=== PATIENT | female | born 1960 | race African-American/Black ===

== ENCOUNTER → 2019-05-26 | Outpatient (CLI) | payer OTHER ==
[~2019-05-26] VITALS: Ht 160 cm; Wt 70.8 kg
[~2019-05-26] MED LIST: AVAPRO300 MG PO; HUMALOG100 UNIT/1 SUBQ; HYDROCODON-ACE1 EAC7 PO; JARDIANCE25 MG PO; NABUMETONE 500500 M1 PO; NEXIUM 24HR20 M1 PO; PROBIOTIC1 EAC7 PO; ROSUVASTATIN CA20 MG PO; SERTRALINE HCL100 MG PO; UNICOMPLEX M TA1 TA1 PO; VALACYCLOVIR500 MG PO; [UNRECOGNIZED DRUG - SUPPLY] SUBQ
[2019-05-26 10:42] VITALS: BP 131/69
--- NOTE | 2019-05-26 11:08 | NUR ---
Pain Clinic Assessment: 1. History of Osteoarthritis: BACK History of Rheumatoid Arthritis: Not Applicable 2. Height: 5 ft. 3 in. 160.0 cm. Weight: 156.0 lb. oz. 70.761 kg. Patient's BMI: 27.6 3. Vital Signs: BP: 131/69 Pulse: 86 Resp: 16 Temp: 02 Sat: 97 ECG Mon: 4. Pain Intensity: 7 5. Fall Risk: Dizziness: Y Needs help standing or walking: N Fallen in the last 3 months: N Fall risk comments: 6. Patient on Blood Thinner: None 7. History of Hypertension: Y 8. Opioid Therapy greater than 6 weeks: N Opiate Contract Signed: 9. Risk Assessment Tool Provided: 3-LOW RISK 10. Functional Assessment Tool: 59/70 11. Recreational Drug Use: Never Drug Type: Tobacco Use: Never Smoker Tobacco Type: Amount or Packs/day: How Many Years: Alcohol Use: No Frequency: Quant:
--- NOTE | 2019-05-27 11:48 | HPC ---
[facility] [address] [address] PAIN MANAGEMENT CONSULTATION Name: SAIRA MENDOZA Room #: REG [facility].#: [id number] Admission: 05/26/19 Attend Phys: Stas Odonnell DO Discharge: Date of : 58 Report #: [id number] THIS REPORT FOR: //name// CC: Delilah GARCIA Physician staff DATE OF SERVICE: 05/26/2019 REFERRING PHYSICIAN: Delilah Husain. PRIMARY CARE PHYSICIAN: Dr. Nava Garcia. CHIEF COMPLAINT: Low back pain, left lower extremity pain with paresthesias. HISTORY OF PRESENT ILLNESS: As you know, the patient is a very pleasant 58-year-old female who reports longstanding history of low back pain, left lower extremity pain with paresthesias. The patient states pain began without inciting injury or trauma and has progressively worsened. She signed an initial treatment through her primary care physician, but due to lack of improvement and continued debility, the patient was then referred to see [facility]. The patient was seen by nurse practitioner, Dr. Jaky Husain on 05/01/2019, diagnosed with lumbar radiculopathy secondary to stenosis and a referral was placed to our clinic for the patient to be seen for evaluation. The patient indicates today pain is continuous, constant and periodic in nature, describes the pain as shooting, aching, crushing and sharp. Places current pain score at 7/10, daily average is 7/10, worst pain has been is 10/10. The patient states that moving, exercising and walking exacerbate her symptoms. Electric vibration and heat tend to improve pain. She has been referred to our service by nurse practitioner, Delilah Husain to discuss treatment options for lumbar radiculopathy. PAST MEDICAL HISTORY: 1. Hyperlipidemia. 2. Gastroesophageal reflux disease. 3. Depression. 4. TMJ. 5. Migraine headaches. 6. Cluster headaches. 7. Diabetes mellitus type 2. 8. Insomnia. 9. Chronic fatigue syndrome. 10. Nephritis. [address] [address] PAIN MANAGEMENT CONSULTATION Name: SAIRA MENDOZA Room #: REG [facility].#: [id number] Admission: 05/26/19 Attend Phys: Stas Odonnell DO Discharge: Date of : 58 Report #: [id number] 11. Chronic lumbar radiculopathy. PAST SURGICAL HISTORY: 1. section. 2. Breast biopsy. 3. Spine surgery. 4. Colonoscopy. 5. ORIF, right wrist. SOCIAL HISTORY: The patient denies tobacco, IV or illicit drug use. 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 She is working, not receiving workmen's compensation or is trying to obtain disability benefits. She is not in litigation in regards to pain. She is unaccompanied today. REVIEW OF SYSTEMS: Positive for fatigue and weakness, frequent and recurrent headaches, eye disease, wearing corrective eyewear, hearing loss with tinnitus, chronic sinus problems with rhinitis, sore throat with voice changes, shortness of breath with walking or lying flat, rectal bleeding, abdominal pain, frequent urination, nocturia, incontinence, dribbling to urine, sexual difficulty, painful menses, irregular menses, vaginal discharge, breast pain, frequent and recurrent headaches, tremors, head injury, memory loss with confusion, nervousness, depression, insomnia, diabetes mellitus type 2, excessive thirst and urination, heat and cold intolerances, slow to heal after cuts, bleeding and bruising tendencies, anemia, chronic low back pain. All other review of systems negative per 12-point review of systems other than those listed in the history of present illness. Pain impact score 59/70 indicating severe interference of daily activities secondary to pain. ALLERGIES: No known drug allergies. CURRENT MEDICATIONS: Omeprazole 20 mg once a day, probiotic 1 tab per day, multivitamin 1 tab per day, 20 mg per day, valacyclovir 500 mg once a day, sertraline 100 mg once a day, insulin sliding scale before meals at bedtime, irbesartan 300 mg once a day, Jardiance 25 mg once a day. IMAGING: MRI lumbar spine obtained 03/12/2019 shows degenerative disk disease seen throughout the lumbar spine resulting in mild central canal stenosis at the L5-S1 level, [id number] central canal stenosis at L4-L5 level. No neural foraminal stenosis. PHYSICAL EXAMINATION: VITAL SIGNS: Blood pressure 131/69, pulse 86, respiratory rate 16 and unlabored. The patient is 97% on room air. Height 5 feet 3 inches tall, weight 156 pounds, BMI calculated at 27.6. [place] [address] PAIN MANAGEMENT CONSULTATION Name: SIARA MENDOZA Room #: REG [facility].#: [id number] Admission: 05/26/19 Attend Phys: Stas E. Blas, DO Discharge: Date of : 58 Report #: [id number] GENERAL: Well-developed, well-nourished, well-hydrated 58-year-old female, appearing stated age, pain is rated today at 7/10. HEENT: Normocephalic, atraumatic. Pupils are equal, round, reactive to light. Extraocular muscles are intact. Sclerae nonicteric without injection. NEUROLOGIC: Cranial nerves 2 through 12 grossly intact. Speech fluent. The patient deemed a good historian. LUNGS: Clear, no wheeze, rhonchi or rales. CARDIOVASCULAR: Regular. No appreciable gallop, no rub. ABDOMEN: Soft, nontender, nondistended, normoactive bowel sounds. EXTREMITIES: Show no clubbing, no cyanosis, no edema. MUSCULOSKELETAL: Lower extremity strength appears equal and symmetrical 5/5, intact to light touch from L1 through S2 dermatomes. Seated straight leg raising negative. Supine straight leg raising positive on the left. Priya's test is negative. Modified Gaenslen's positive for axial low back pain. Ankle clonus negative. Babinski is negative. Deep tendinous reflexes equal and symmetrical, 2+/4 patella and Achilles. ASSESSMENT: 1. Symptomatic lumbar radiculopathy. 2. Central canal stenosis of lumbar spine. 3. Displacement of lumbar intervertebral disk with radiculopathy. 4. Lumbosacral spondylosis with radiculopathy. 5. Lumbar degeneration. 6. Chronic intractable pain. PLAN: 1. Based on today's physical exam and history the patient has provided, the description the patient uses in regards to pain as well as the location of symptoms, likely source of the patient's pain is lumbar radiculopathy. It is confirmed on the MRI from 2019 that the patient has changes at the L4-L5 level consistent with the patient's distribution of symptoms due to central canal stenosis. We discussed the findings of the MRI with the patient today and then after that discussion, we discussed treatment options. The patient has a full and comprehensive understanding of her findings in the lumbar spine and the following was discussed with the patient on how to treat the symptoms further. We discussed physical therapy, stretching exercise, core strengthening as a treatment course. We discussed medication management utilizing neuropathic pain medications and a consistent nonsteroidal anti-inflammatory. We also discussed epidural injection for which the patient was referred to our clinic, spinal cord stimulator and ultimately surgical decompression. After reviewing of risks and benefits of all the proposed treatment options, the patient chose to begin with epidural injection under fluoroscopic guidance. 2. The patient was advised that due to third republican payer restrictions, authorization would have to be obtained before the patient could undergo a lumbar epidural injection under fluoroscopic guidance. Authorization could take [address] [address] PAIN MANAGEMENT CONSULTATION Name: SAIRA MENDOZA Room #: REG [facility] Que#: [id number] Admission: 05/26/19 Attend Phys: Stas Odonnell DO Discharge: Date of : 58 Report #: [id number] anywhere from 4-7 working days to begin this process immediately. Once this has been completed, we will have the patient return to undergo lumbar epidural injection. We will start the patient on nabumetone as an anti-inflammatory. We will start at 500 mg t.i.d. I have given the patient #90 tablets, no refills. I have advised the patient to watch for side effects of dyspepsia, worsening of blood pressure, lower extremity edema with its use. If she notes any side effects, discontinue immediately, call for further instructions. 3. The patient was provided a low dose of hydrocodone 5/325 one tab p.o. q. 8 hours p.r.n. for pain. I have given the patient #45 tablets, no refills. I advised the patient to take the medication as directed, not to take the medication prophylactically. She will watch for side effects of sleepiness, disorientation, confusion, mental slowing and constipation with its use; any side effects, discontinue immediately. 4. We will see the patient back in followup visit once we have achieved authorization for the patient to undergo a lumbar epidural injection. We are hopeful that authorization will be provided quickly, so that we can move forward with an epidural injection. We will keep the patient apprised of our progress. 5. We wish to thank nurse practitioner, Delilah Husain for the referral of the patient to our clinic. We will keep you apprised of her response to treatment as we address lumbar radicular symptoms secondary to central canal stenosis. Again, we wish to thank you for the opportunity to see this patient in consultation. <ELECTRONICALLY SIGNED> By: Stas Odonnell DO 05/27/19 1148 [id number] Stas Odonnell DO /nt
== END ==
LOC: PAIN 06:49
DX: M51.16 Intervertebral disc disorders with radiculopathy, lumbar region (principal); M47.27 Other spondylosis with radiculopathy, lumbosacral region; M48.061 Spinal stenosis, lumbar region without neurogenic claudication; G89.4 Chronic pain syndrome

== ENCOUNTER → 2019-05-27 | Outpatient (CLI) | payer OTHER ==
[~2019-05-27] VITALS: Ht 160 cm; Wt 70.8 kg
--- NOTE | ~2019-05-27 | HPC ---
[facility] [place] [address] PAIN MANAGEMENT CONSULTATION Name: SAIRA MENDOZA Room #: REG [facility].#: [id number] Admission: 05/27/19 Attend Phys: Stas Odonnell DO Discharge: Date of : 58 Report #: [id number] THIS REPORT FOR: //name// CC: Jaky Garcia MD Physician staff REFERRING PHYSICIAN: Jaky Husain, nurse practitioner. PRIMARY CARE PHYSICIAN: Nava Garcia M.D. CHIEF COMPLAINT: Low back pain, left lower extremity pain with paresthesias. HISTORY OF PRESENT ILLNESS: As you know, the patient is a very pleasant 58-year-old female seen in consultation yesterday, 05/26/2019, diagnosed with lumbar radiculopathy secondary to central canal stenosis. She was established today's appointment to undergo a lumbar epidural injection under fluoroscopic guidance. The patient has yet to initiate the medication started at our last visit. She states that over the past 24 hours, her pain has not changed in any great degree. She returns today to undergo a lumbar epidural injection under fluoroscopic guidance for which we have gained authorization. ALLERGIES: No known drug allergies. CURRENT MEDICATIONS: Omeprazole, probiotic, multivitamin, valacyclovir, sertraline, insulin sliding scale, irbesartan, Jardiance, rosuvastatin. SOCIAL HISTORY: The patient denies tobacco, IV or illicit drug use. Currently employed as a digital sales assistant, working, not receiving workmen's compensation, unaccompanied today. IMAGING: No new imaging available. PHYSICAL EXAMINATION: VITAL SIGNS: Blood pressure 127/85, pulse 80, respiratory rate 20 and unlabored. The patient is 95% on room air. Height 5 feet 3 inches tall, weight 156 pounds, BMI calculated at 27.6. GENERAL: Well-developed, well-nourished, well-hydrated 58-year-old female appearing stated age. Pain is rated today at 3/10. HEENT: Normocephalic, atraumatic. Pupils equal, round, reactive to light. EXTREMITIES: Show no clubbing, no cyanosis, and no edema. MUSCULOSKELETAL: Lower extremity strength equal and symmetrical 5/5, intact to light touch from L1 through S2 dermatomes. Seated straight leg raising negative. Supine straight leg [place] [address] PAIN MANAGEMENT CONSULTATION Name: SAIRA MENDOZA Room #: REG [facility]#: [id number] Admission: 05/27/19 Attend Phys: Stas Odonnell DO Discharge: Date of : 58 Report #: [id number] ASSESSMENT: 1. Symptomatic lumbar radiculopathy. 2. Central canal stenosis of lumbar spine. 3. Displacement of lumbar intervertebral disk with radiculopathy. 4. Lumbosacral spondylosis with radiculopathy. 5. Lumbar degeneration. 6. Chronic intractable pain. PLAN: 1. The patient returns today in followup visit to undergo first in a series of lumbar epidural injections under fluoroscopic guidance. She has been advised of the risks and benefits of this procedure. These risks include but are not necessarily limited to bleeding, bruising, infection, worsening of pain, no relief of pain, also risk of temporary or permanent muscle weakness, temporary or permanent nerve damage, possible paralysis, post-dural puncture headache and . The patient states understood and wished to proceed. 2. No medication changes made at today's visit. The patient was advised to continue medications as currently prescribed. 3. We will see the patient back in followup visit in 31 days. At that time, review the efficacy of today's epidural injection to determine next in the series might be necessary PROCEDURE NOTE DESCRIPTION OF PROCEDURE: L5-S1 left parasagittal epidural steroid injection under fluoroscopic guidance. This is the first procedure of the first series that the patient is undergoing. After obtaining written consent, the patient was taken back to the fluoroscopy suite, placed in a prone position with pillow under the abdomen to decrease lumbar lordosis. The skin overlying the lumbosacral area was then prepped and draped in aseptic fashion. The L5-S1 vertebral interspace was then identified by AP fluoroscopy. The skin and subcutaneous tissue overlying the target site of injection was anesthetized with 3 mL 1% lidocaine. A 20-gauge 3.5 inch Tuohy needle was then advanced under fluoroscopic guidance towards the epidural space using a right parasagittal approach. The epidural space was identified using loss of resistance to air technique. After negative aspiration for heme or cerebrospinal fluid, a total of 1 mL of Omnipaque was injected. A lumbar epidurogram was confirmed using both AP and lateral fluoroscopy. After negative aspiration for heme or cerebrospinal fluid, 5 mL of a solution containing 2 mL 40 mg per mL, 80 mg total triamcinolone along with 3 mL of lidocaine 1% was injected in increments. Contrast spread was noted posterior epidural space. The needle was then retracted approximately half way and needle tract flushed with 1 mL of 1% lidocaine. Needle was then removed. [address] [address] PAIN MANAGEMENT CONSULTATION Name: SAIRA MENDOZA Room #: REG [facility]#: [id number] Admission: 05/27/19 Attend Phys: Stas Odonnell DO Discharge: Date of : 58 Report #: [id number] There were no apparent sensory or motor deficits in the lower extremity following the procedure. A sterile bandage was placed over the injection site. The heart rate, pulse, oximetry and blood pressure were continuously monitored after the procedure. There were no apparent complications. The patient tolerated the procedure well and was carefully escorted to the recovery room in stable condition. There were no apparent complications. After meeting discharge criteria, the patient was then discharged home. By: [id number] Stas Odonnell DO /nt
[2019-05-27 12:41] VITALS: BP 127/85
--- NOTE | 2019-05-27 12:43 | NUR ---
Pain Clinic Assessment: 1. History of Osteoarthritis: BACK History of Rheumatoid Arthritis: Not Applicable 2. Height: 5 ft. 3 in. 160.0 cm. Weight: 156.0 lb. oz. 70.761 kg. Patient's BMI: 27.6 3. Vital Signs: BP: 127/85 Pulse: 80 Resp: 20 Temp: 02 Sat: 95 ECG Mon: 4. Pain Intensity: 3 5. Fall Risk: Dizziness: N Needs help standing or walking: N Fallen in the last 3 months: N Fall risk comments: 6. Patient on Blood Thinner: None 7. History of Hypertension: Y 8. Opioid Therapy greater than 6 weeks: N Opiate Contract Signed: 9. Risk Assessment Tool Provided: 3-LOW RISK 10. Functional Assessment Tool: 59/70 11. Recreational Drug Use: Never Drug Type: Tobacco Use: Never Smoker Tobacco Type: Amount or Packs/day: How Many Years: Alcohol Use: No Frequency: Quant:
== END | disposition home or self-care (01) ==
LOC: PAIN 12:26
DX: M51.16 Intervertebral disc disorders with radiculopathy, lumbar region (principal); M47.27 Other spondylosis with radiculopathy, lumbosacral region; M48.061 Spinal stenosis, lumbar region without neurogenic claudication; G89.29 Other chronic pain; Z79.891 Long term (current) use of opiate analgesic; Z79.899 Other long term (current) drug therapy

== ENCOUNTER → 2019-06-16 | Outpatient (CLI) | payer OTHER ==
[~2019-06-16] VITALS: Ht 160 cm; Wt 70.0 kg
[~2019-06-16] MED LIST changes: +MELOXICAM7.5 MG PO
[2019-06-16 09:38] VITALS: BP 154/93
--- NOTE | 2019-06-16 09:47 | NUR ---
Pain Clinic Assessment: 1. History of Osteoarthritis: BACK History of Rheumatoid Arthritis: Not Applicable 2. Height: 5 ft. 3 in. 160.0 cm. Weight: 154.4 lb. oz. 70.035 kg. Patient's BMI: 27.4 3. Vital Signs: BP: 154/93 Pulse: 70 Resp: 14 Temp: 02 Sat: 95 ECG Mon: 4. Pain Intensity: 5-6 AVG 5. Fall Risk: Dizziness: N Needs help standing or walking: N Fallen in the last 3 months: N Fall risk comments: 6. Patient on Blood Thinner: None 7. History of Hypertension: Y 8. Opioid Therapy greater than 6 weeks: N Opiate Contract Signed: 9. Risk Assessment Tool Provided: 3-LOW RISK 10. Functional Assessment Tool: 59/70 11. Recreational Drug Use: Never Drug Type: Tobacco Use: Never Smoker Tobacco Type: Amount or Packs/day: How Many Years: Alcohol Use: No Frequency: Quant:
--- NOTE | 2019-06-23 08:03 | HPC ---
[facility] [place] [address] PAIN MANAGEMENT CONSULTATION Name: SAIRA MENDOZA Room #: REG [facility]#: [id number] Admission: 06/16/19 Attend Phys: Stas Odonnell DO Discharge: Date of : 58 Report #: [id number] THIS REPORT FOR: cc: JAMIE RAGSDALE Physician not on staff Stas Odonnell DO ~ THIS REPORT FOR: //name// CC: Jaky RAGSDALE Physician staff DATE OF SERVICE: 06/16/2019 CHIEF COMPLAINT: Low back pain, left lower extremity pain and paresthesias. HISTORY OF PRESENT ILLNESS: As you know, the patient is a very pleasant 58-year-old female returning in followup visit indicating only transient improvement in symptoms with the epidural injection provided at our visit of 05/27/2019. The patient states about a week worth of improvement overall. She returns today to discuss options for treatment. She is placing her current pain score around 5-6/10. As you are aware, the patient does have significant changes noted pathologically at the L4-L5 level causing [id number] central canal stenosis, the likely source of the patient's symptoms. ALLERGIES: No known drug allergies. CURRENT MEDICATIONS: Omeprazole, probiotic, multivitamin, valacyclovir, sertraline, insulin, irbesartan, Jardiance, atorvastatin and nabumetone. SOCIAL HISTORY: The patient denies tobacco, IV or illicit drug use. She is employed as a buyer broker working, not receiving workmen's compensation, unaccompanied today. IMAGING: No new imaging is available. PHYSICAL EXAMINATION: VITAL SIGNS: Blood pressure 154/93, pulse 70, respiratory rate 14 and unlabored. The patient is 95% on room air. Height 5 feet 3 inches tall, weight 154.4 pounds, and BMI calculated 27.4. GENERAL: Well-developed, well-nourished, well-hydrated 58-year-old female appearing stated age, pain is rated today around 5-6/10. HEENT: Normocephalic, atraumatic. Pupils equal, round, reactive to light. Speech is fluent. The patient deemed a good historian. EXTREMITIES: Show no clubbing, no cyanosis, and no edema. [address] [address] PAIN MANAGEMENT CONSULTATION Name: SAIRA MENDOZA Room #: REG [facility]#: [id number] Admission: 06/16/19 Attend Phys: Stas Odonnell DO Discharge: Date of : 58 Report #: [id number] MUSCULOSKELETAL: The patient reports continued equal and symmetrical strength, which is proven by physical exam today. She is intact to light touch from L1 through S2 dermatomes. Seated straight leg raising negative. Supine straight leg raising positive on the left. Priya's test is negative. Gait is mildly antalgic favoring left lower extremity. ASSESSMENT: 1. Symptomatic lumbar radiculopathy. 2. Moderate to severe central canal stenosis of the lumbar spine. 3. Displacement of lumbar intervertebral disk with radiculopathy. 4. Lumbosacral spondylosis with radiculopathy. 5. Lumbar degeneration. 6. Chronic intractable pain. PLAN: 1. The patient returns today in followup visit to discuss options for treatment as the epidural injection did only provide transient improvement in symptoms. We discussed with the patient the treatment options we have available to address lumbar radicular symptoms secondary to spinal stenosis. The following was discussed with the patient today. We discussed physical therapy, stretching exercise, core strengthening and a concerted effort at any weight loss to alleviate some of the pressure from the weight, but also to improve core strengthening, which can stabilize the lumbar spine and reduce pain. We discussed medication management utilizing neuropathic pain medications for improvement in radiculopathy. We discussed repeating epidural injection under fluoroscopic guidance for which the patient was referred to our service. We also discussed spinal cord stimulator therapy and ultimately surgical decompression. After reviewing the risks and benefits of all proposed treatment options, the patient chose to move forward with a spinal cord stimulator trial. 2. The patient was given information today in both digital and written form in regards to spinal cord stimulator. The patient will seek evaluation through Psychiatry as part of the prerequisites for the patient to undergo the trial implantation. If the patient shows no psychopathology, she would be a candidate for a trial implantation. We will begin the process of any preapprovals that may be necessary through the patient's insurer after she has completed the psychiatric evaluation. 3. The patient was given the names of psychiatrists in the area who do the testing for spinal cord stimulator. The patient will make an appointment with these individuals as quickly as possible. Once she has this appointment completed, she is to contact our clinic advising us of completion of the trial, so that we can then review the psychiatric evaluation. If no psychopathology is noted, we will then begin the process of authorization for trial implantation. The patient was advised the faster she is able to see the psychiatrist, the faster we can move forward with a trial implantation. [facility] [address] [place] [address] PAIN MANAGEMENT CONSULTATION Name: SAIRA MENDOZA Room #: REG [facility]#: [id number] Admission: 06/16/19 Attend Phys: Stas Odonnell DO Discharge: Date of : 58 Report #: [id number] 4. The patient indicates that she is having some difficulty from a dyspepsia standpoint. When taking the nabumetone, we recommend she discontinue this medication, in place, we will use meloxicam, which has a more stomach protective formulation. She will start this medication today taken twice a day with meals. She was given meloxicam 7.5 mg 1 tab p.o. b.i.d., #60, 2 refills. 5. The patient and I did discuss the spinal cord stimulator in its entirety today. We will begin the authorization process for the patient to undergo the procedure. We will hopefully have the patient back as quickly as possible. She can contact our clinic at any time to determine progress of this preapproval process. <ELECTRONICALLY SIGNED> By: Stas Odonnell DO 06/23/19 [id number] Stas Odonnell DO /nt
== END ==
LOC: PAIN 06:49
DX: M47.26 Other spondylosis with radiculopathy, lumbar region (principal); M48.061 Spinal stenosis, lumbar region without neurogenic claudication; M51.16 Intervertebral disc disorders with radiculopathy, lumbar region; M47.818 Spondylosis without myelopathy or radiculopathy, sacral and sacrococcygeal region; G89.29 Other chronic pain; Z79.899 Other long term (current) drug therapy

== ENCOUNTER → 2019-10-13 | Outpatient (CLI) | payer OTHER ==
[~2019-10-13] VITALS: Ht 160 cm; Wt 65.9 kg
[~2019-10-13] MED LIST changes: +SPIRONOLACTONE25 MG PO
[2019-10-13 09:04] VITALS: BP 143/82
--- NOTE | 2019-10-13 09:16 | NUR ---
Pain Clinic Assessment: 1. History of Osteoarthritis: BACK History of Rheumatoid Arthritis: Not Applicable 2. Height: 5 ft. 3 in. 160.0 cm. Weight: 145.2 lb. oz. 65.862 kg. Patient's BMI: 25.7 3. Vital Signs: BP: 143/82 Pulse: 86 Resp: 14 Temp: 02 Sat: 98 ECG Mon: 4. Pain Intensity: 4 5. Fall Risk: Dizziness: N Needs help standing or walking: N Fallen in the last 3 months: N Fall risk comments: 6. Patient on Blood Thinner: None 7. History of Hypertension: Y 8. Opioid Therapy greater than 6 weeks: N Opiate Contract Signed: 9. Risk Assessment Tool Provided: 3-LOW RISK 10. Functional Assessment Tool: 59/70 11. Recreational Drug Use: Never Drug Type: Tobacco Use: Never Smoker Tobacco Type: Amount or Packs/day: How Many Years: Alcohol Use: No Frequency: Quant:
--- NOTE | 2019-10-14 13:15 | HPC ---
[facility] [address] [place] [address] PAIN MANAGEMENT CONSULTATION Name: SAIRA MENDOZA Room #: REG [facility].#: [id number] Admission: 10/13/19 Attend Phys: Stas Odonnell DO Discharge: Date of : 58 Report #: [id number] THIS REPORT FOR: cc: JAMIE RAGSDALE Physician not on staff Stas Odonnell DO ~ DATE OF SERVICE: 10/13/2019 REFERRING PHYSICIAN: Jaky Husain, nurse practitioner. CHIEF COMPLAINT: Low back pain and left lower extremity pain with paresthesias. HISTORY OF PRESENT ILLNESS: As you know, the patient is a very pleasant 59-year-old female who has returned today in followup visit to undergo next in the series of lumbar epidural injections. The patient reports transient improvement in symptoms again with this previous epidural injection. She reports initial improvement of approximately 80%, but this only lasted for about 2 weeks and subsequent recurrence of symptoms. The patient, as you are aware, was referred to our clinic to undergo spinal cord stimulator trial implantation, but unfortunately the third republican payer has been unwilling to allow for this device to be trialled. She continues to utilize conservative treatment with minimal benefit. She returns today requesting next in the series of epidural injections in hopes of improving pain and discuss other options for treatment. ALLERGIES: No known drug allergies. CURRENT MEDICATIONS: Irbesartan, Jardiance, insulin, sertraline, valacyclovir, rosuvastatin, multivitamin, probiotics, omeprazole, nabumetone, hydrocodone, spironolactone, and meloxicam. SOCIAL HISTORY: The patient denies tobacco, IV or illicit drug use. She is working, not receiving workmen's compensation, unaccompanied today. IMAGING: No new imaging available. PHYSICAL EXAMINATION: VITAL SIGNS: Blood pressure 143/82, pulse 86, respiratory rate 14 and unlabored. The patient is 98% on room air. Height 5 feet 3 inches tall, weight 145.2 pounds, BMI calculated 25.7. GENERAL: Well-developed, well-nourished, well-hydrated 59-year-old female appearing stated age. Pain is rated today at 4/10. HEENT: Normocephalic, atraumatic. Pupils equal, round and reactive. Speech fluent. EXTREMITIES: Show no clubbing, no cyanosis, no edema. MUSCULOSKELETAL: The patient has equal and symmetrical lower extremity strength [address] [address] PAIN MANAGEMENT CONSULTATION Name: SAIRA MENDOZA Room #: REG [facility]#: [id number] Admission: 10/13/19 Attend Phys: Stas Odonnell DO Discharge: Date of : 58 Report #: [id number] again today 09/07. Muscle bulk and tone is symmetrical when comparing the left lower extremity to right. Seated straight leg raising negative. Supine straight leg raising positive on the left at approximately 50-60 degree angle. Ankle clonus negative. Babinski is negative. Gait does appear mildly antalgic again favoring the left lower extremity over right. Lumbar provocation testing is met with increased axial back pain mainly with rotation and lateral flexion bilaterally. ASSESSMENT: 1. Symptomatic lumbar radiculopathy. 2. Moderate to severe central canal stenosis of lumbar spine. 3. Displacement of lumbar intervertebral disk with radiculopathy. 4. Lumbosacral spondylosis with radiculopathy. 5. Lumbar degeneration. 6. Chronic intractable pain. PLAN: 1. The patient returns today in followup visit requesting to undergo epidural injection under fluoroscopic guidance and to discuss other treatment options. As you are aware, the patient receives good benefit with the epidural injection, but unfortunately they are transient in their improvement in pain. Previous epidural injection gave approximately 80% improvement in overall pain lasting for 2 weeks with return of symptoms soon after. This would indicate the central canal stenosis as the source of the patient's symptoms as she has only seeing transient improvement with the injections and symptoms are now presenting periodically bilaterally. The patient and I did discuss other treatment options. The following was discussed with the patient today. We discussed physical therapy, stretching exercises and core strengthening as a way to maintain strength, but we will not change her overall pain. We discussed adjustments in medication management, trialing long-acting neuropathic medications. The patient has been on amitriptyline in the past, which led to significant weight gain and had to discontinue the therapy. She has not been on the long-acting gabapentin therapy such as Gralise or Horizant. She is resistant to look towards Lyrica given the concern of weight gain she had with other medications. We discussed epidural injections as a way to improve the pain transiently. We also discussed spinal cord stimulator, which I believe should have been approved initially, but we will continue the process of trying to gain approval on this and we will request the referring neurosurgery team to also be involved in that portion of the patient's care. We also discussed surgical options with the patient as she is considering this option, given the lack of approvals on the spinal cord stimulator. After reviewing the risks and benefits of all proposed treatment options, the patient chose epidural injection and medication management changes today with consideration of surgical options in the future. 2. The patient was given samples of Horizant 600 mg dose. She will begin [address] [address] PAIN MANAGEMENT CONSULTATION Name: SAIRA MENDOZA Room #: REG [facility]#: [id number] Admission: 10/13/19 Attend Phys: Stas Odonnell DO Discharge: Date of : 58 Report #: [id number] p.o. at bedtime and continue for 7 nights. If no improvement in symptoms and no side effects of sleepiness, disorientation, confusion, mental slowing, then increase to 600 mg in the morning and 600 mg at night for a total of 1200 mg daily dose. She was given samples of the medication today. She will contact our clinic when she initiates the medication and let us know the efficacy. 3. The patient has been advised of the risks and benefits of a lumbar epidural injection. These risks include but are not necessarily limited to bleeding, bruising, infection, worsening pain, no relief of pain, also risk of temporary or permanent muscle weakness, temporary or permanent nerve damage, possible paralysis and . The patient states understood and wished to proceed. 4. The patient will return to our clinic on an as needed basis for possible next in the series of epidural injections. We will await a phone call from the patient in regards to efficacy with the Horizant to determine if we continue that therapy or make further adjustments. PROCEDURE NOTE DESCRIPTION OF PROCEDURE: L5-S1 interlaminar epidural steroid injection under fluoroscopic guidance. This is the second procedure of the first series that the patient is undergoing. After obtaining written consent, the patient was taken back to the fluoroscopy suite, placed in a prone position with pillow under the abdomen to decrease lumbar lordosis. The skin overlying the lumbosacral area was then prepped and draped in aseptic fashion. The L5-S1 vertebral interspace was then identified by AP fluoroscopy. The skin and subcutaneous tissue overlying the target site of injection was anesthetized with 3 mL 1% lidocaine. A 20-gauge 3-1/2 inch Tuohy needle was then advanced under fluoroscopic guidance towards the epidural space using a paramedian approach. The epidural space was identified using loss of resistance to air technique. After negative aspiration for heme or cerebrospinal fluid, a total of 1 mL of Omnipaque was injected. A lumbar epidurogram was confirmed using both AP and lateral fluoroscopy. After negative aspiration for heme or cerebrospinal fluid, 5 mL of a solution containing 2 mL 40 mg/mL, 80 mg total triamcinolone along with 3 mL of lidocaine 1% was injected in increments. Contrast spread was noted posterior epidural space. The needle was then retracted approximately half way and needle tract flushed with 1 mL of 1% lidocaine. Needle was then removed. There were no apparent sensory or motor deficits in the lower extremity following the procedure. A sterile bandage was placed over the injection site. The heart rate, pulse, oximetry and blood pressure were continuously monitored after the procedure. There were no apparent complications. The patient tolerated the procedure well and was carefully escorted [place] [address] PAIN MANAGEMENT CONSULTATION Name: KELLYSAIRA Y Room #: REG [facility] Que#: [id number] Admission: 10/13/19 Attend Phys: Stas Odonnell DO Discharge: Date of : 58 Report #: [id number] stable condition. There were no apparent complications. After meeting discharge criteria, the patient was then discharged home. <ELECTRONICALLY SIGNED> By: Stas Odonnell DO 10/14/19 [id number] Stas Odonnell DO /nt
== END | disposition home or self-care (01) ==
LOC: PAIN 08-26 11:29
PROVIDERS: ATTEND Anesthesiology Pain Medicine
DX: M51.16 Intervertebral disc disorders with radiculopathy, lumbar region (principal); M47.27 Other spondylosis with radiculopathy, lumbosacral region; M48.061 Spinal stenosis, lumbar region without neurogenic claudication; G89.29 Other chronic pain; Z98.890 Other specified postprocedural states; Z79.899 Other long term (current) drug therapy